=== PATIENT | female | born 1980 | race Caucasian/White ===

== ENCOUNTER 2016-11-23 04:33 | Emergency (ER) | payer SELFPAY ==
[~2016-11-23] VITALS: Ht 170.2 cm; Wt 90.0 kg
[~2016-11-23 04:33] MED LIST: COLY4000S PO; METH40TA9 PO
[2016-11-23 04:35] VITALS: BP 130/74; PULSE 92; RESP 16; TEMP 97.8; O2SAT 98
[2016-11-23 05:04] VITALS: BP 112/71; PULSE 77; RESP 17; O2SAT 97
[2016-11-23 05:12] LABS: AUTOMATED NEUTROPHIL # 5.4 TH/MM3 (1.8-7.7); BASOPHIL # 0.1 TH/MM3 (0-0.2); BASOPHIL % 0.6 % (0.0-2.0); EOSINOPHIL # 0.1 TH/MM3 (0-0.4); EOSINOPHIL % 1.7 % (0.0-4.0); HEMATOCRIT 38.5 % (35.0-46.0); HEMO FLAGS DIFF FINAL; LYMPH % 23.6 % (9.0-44.0); LYMPHOCYTE # 1.9 TH/MM3 (1.0-4.8); MEAN CELL VOLUME 83.3 FL (80.0-100.0); MEAN CORPUSCULAR HEMOGLOBIN 28.1 PG (27.0-34.0); MEAN CORPUSCULAR HGB CONC 33.7 % (32.0-36.0); MONO % 8.1 % (0.0-8.0); PLATELET COUNT 269 TH/MM3 (150-450); RED BLOOD COUNT 4.63 MIL/MM3 (4.00-5.30); RED CELL DISTRIBUTION WIDTH 14.7 % (11.6-17.2); WHITE BLOOD COUNT 8.1 TH/MM3 (4.0-11.0)
[2016-11-23] MEDS ORDERED: SODIUM CHLOR 0.9% 1000 ML INJ 1,000 ML IV ONE ×2 (05:15→06:15)
[2016-11-23 05:50] LABS: ALT (GPT) 52 U/L (10-53); ANION GAP 8 MEQ/L (5-15); AST (GOT) 25 U/L (15-37); BICARBONATE 24.7 MEQ/L (21.0-32.0); BLOOD UREA NITROGEN 11 MG/DL (7-18); CHLORIDE 107 MEQ/L (98-107); GLOMERULAR FILTRATION RATE 73 ML/MIN (>89); POTASSIUM 3.3 MEQ/L (3.5-5.1); SODIUM (NA) 140 MEQ/L (136-145)
[2016-11-23 05:52] LABS: ALKALINE PHOSPHATASE 66 U/L (45-117); TOTAL BILIRUBIN ADULT 0.9 MG/DL (0.2-1.0)
--- NOTE | 2016-11-23 06:07 | PD ---
HPI Chief Complaint: Alcohol/Drug Intoxication Time Seen by Provider: 04:51 Travel History International Travel<30 days: No Contact w/Intl Traveler<30days: No Traveled to known affect area: No History of Present Illness HPI Patient is a 36 year old female who [place]. She says that she thought she was taking meth today, but she has been very sleepy for the past 14 hours. She says she has pain all over. She denies fever or chills. She has not had any SOB or chest pain. She was recently at [facility] for detox and was released a few days ago and relapsed. [facility] Past Medical History ADHD: Yes Bipolar Disorder: Yes Anxiety: Yes Depression: Yes Diminished Hearing: No Kidney Stones: Yes Psychiatric: Yes (PTSD) ?: Not LMP: 11/22/16 : 4 Para: 1 Miscarriage: 3 : 1 Past Surgical History Genitourinary Surgery: Yes (KIDNEY STONE REMOVAL) Oral Surgery: Yes (WISDOM TEETH EXCISION) Other Surgery: Yes (LITHOTRIPSY @ AGE 15) Social History Alcohol Use: No Tobacco Use: Yes (04/19 PPD) Substance Use: No (HX OPIOD ABUSE) Allergies-Medications (Allergen,Severity, Reaction): Coded Allergies: Sulfa (Verified Allergy, Severe, "rash,throat closes", 11/23/16) Reported Meds & Prescriptions Reported Meds & Active Scripts Active Bactrim DS (Sulfamethoxazole-Trimethoprim) 800-160 Mg Tab 1 Tab PO BID Review of Systems Except as stated in HPI: all other systems reviewed are Neg General / Constitutional: No: Fever, Chills Eyes: No: Blurred Vision HENT: No: Headaches, Lightheadedness Cardiovascular: No: Chest Pain or Discomfort Respiratory: No: Shortness of Breath Gastrointestinal: No: Nausea, Vomiting Musculoskeletal: Positive: Myalgias Skin: No Rash, No Change in Pigmentation, No Lesions Neurologic: No: Weakness, Dizziness Physical Exam Narrative GENERAL: Awake and alert, in no acute distress. SKIN: Focused skin assessment warm/dry. HEAD: Atraumatic. Normocephalic. EYES: Pupils equal and round. No scleral icterus. ENT: Mucous membranes pink and moist. NECK: Trachea midline. No JVD. CARDIOVASCULAR: Regular rate and rhythm. No murmur appreciated. RESPIRATORY: No accessory muscle use. Clear to auscultation. Breath sounds equal bilaterally. GASTROINTESTINAL: Abdomen soft, non-tender, nondistended. MUSCULOSKELETAL: No obvious deformities. No clubbing. No cyanosis. No edema. NEUROLOGICAL: Awake and alert. No obvious cranial nerve deficits. Motor grossly within normal limits. Normal speech. PSYCHIATRIC: Appropriate mood and affect; insight and judgment normal. Data Data Last Documented VS Vital Signs Date Time Temp Pulse Resp B/P Pulse Ox O2 Delivery O2 Flow Rate FiO2 11/23/16 07:30 78 16 127/77 99 11/23/16 06:20 Room Air 11/23/16 04:35 97.8 Orders Complete Blood Count With Diff (11/23/16 05:02) Comprehensive Metabolic Panel (11/23/16 05:02) Urinalysis - C+S If Indicated (11/23/16 05:02) Ed Urine Pregnancytest Poc (11/23/16 05:02) Iv Access Insert/Monitor (11/23/16 05:02) Drug Screen, Random Urine (11/23/16 05:02) Sodium Chlor 0.9% 1000 Ml Inj (Ns 1000 M (11/23/16 05:15) Sodium Chlor 0.9% 1000 Ml Inj (Ns 1000 M (11/23/16 06:15) Urine Culture (11/23/16 06:00) Labs Laboratory Tests Test 11/23/16 11/23/16 05:05 06:00 White Blood Count 8.1 TH/MM3 Red Blood Count 4.63 MIL/MM3 Hemoglobin 13.0 GM/DL Hematocrit 38.5 % Mean Corpuscular Volume 83.3 FL Mean Corpuscular Hemoglobin 28.1 PG Mean Corpuscular Hemoglobin 33.7 % Concent Red Cell Distribution Width 14.7 % Platelet Count 269 TH/MM3 Mean Platelet Volume 8.6 FL Neutrophils (%) (Auto) 66.0 % Lymphocytes (%) (Auto) 23.6 % Monocytes (%) (Auto) 8.1 % Eosinophils (%) (Auto) 1.7 % Basophils (%) (Auto) 0.6 % Neutrophils # (Auto) 5.4 TH/MM3 Lymphocytes # (Auto) 1.9 TH/MM3 Monocytes # (Auto) 0.7 TH/MM3 Eosinophils # (Auto) 0.1 TH/MM3 Basophils # (Auto) 0.1 TH/MM3 CBC Comment DIFF FINAL Differential Comment Sodium Level 140 MEQ/L Potassium Level 3.3 MEQ/L Chloride Level 107 MEQ/L Carbon Dioxide Level 24.7 MEQ/L Anion Gap 8 MEQ/L Blood Urea Nitrogen 11 MG/DL Creatinine 0.87 MG/DL Estimat Glomerular Filtration 73 ML/MIN Rate Random Glucose 89 MG/DL Calcium Level 9.1 MG/DL Total Bilirubin 0.9 MG/DL Aspartate Amino Transf 25 U/L (AST/SGOT) Alanine Aminotransferase 52 U/L (ALT/SGPT) Alkaline Phosphatase 66 U/L Total Protein 8.5 GM/DL Albumin 3.9 GM/DL Urine Color YELLOW Urine Turbidity HAZY Urine pH 5.5 Urine Specific [place] 1.033 Urine Protein 30 mg/dL Urine Glucose (UA) NEG mg/dL Urine Ketones NEG mg/dL Urine Occult Blood LARGE Urine Nitrite NEG Urine Bilirubin NEG Urine Urobilinogen 4.0 MG/DL Urine Leukocyte Esterase SMALL Urine RBC 31 /hpf Urine WBC 15 /hpf Urine Squamous Epithelial 7 /hpf Cells Urine Calcium Oxalate Crystals MANY /hpf Urine Bacteria MANY /hpf Urine Mucus FEW /lpf Microscopic Urinalysis Comment CULTURE INDICATED Urine Opiates Screen NEG Urine Barbiturates Screen NEG Urine Amphetamines Screen POS Urine Benzodiazepines Screen NEG Urine Cocaine Screen NEG Urine Cannabinoids Screen NEG MDM Medical Decision Making Medical Screen Exam Complete: Yes Emergency Medical Condition: Yes Medical Record Reviewed: Yes Differential Diagnosis drug abuse vs dehydration vs electrolyte abnormalities Narrative Course Patient is a 36 year old female who comes in because she has been feeling very tired despite using meth earlier today. Her mother has brought her in because she wants her to go to detox. Exam shows no acute abnormalities. IV established , labs sent. Given IVF. Labs show no acute abnormalities, other than UTI on UA. Urine toxicology positive for amphetamines. Patient will go to [facility] for detox. Advised to follow up with a PCP. Advised to return to the ED as needed for any worsening symptoms. Diagnosis Primary Impression: Drug intoxication Qualified Code: F19.920 - Drug intoxication without complication Additional Impression: UTI (urinary tract infection) Qualified Code: N30.00 - Acute cystitis without hematuria Patient Instructions: General Instructions, Polysubstance Abuse (ED) Additional Instructions: Go to [facility] for detox. Follow up with your doctors. Return to the ED as needed for any worsening symptoms. Scripts Sulfamethoxazole-Trimethoprim (Bactrim DS)800-160 Mg Tab1 Tab PO BID #6 TAB Ref 0 Prov:Sally Mcghee MD 11/23/16 Disposition: 01 DISCHARGE HOME Condition: Stable Sally Mcghee MD Nov 23, 2016 06:07
[2016-11-23 06:20] VITALS: RESP 16; O2SAT 98
[2016-11-23 06:58] LABS: BACTERIA, URINE MANY /hpf; BLOOD, URINE LARGE (NEG); CALCIUM OXALATE CRYSTALS,URINE MANY /hpf; COMMENT (UR) CULTURE INDICATED; CULTURE IF INDICATED CULTURE INDICATED; GLUCOSE,URINE NEG (NEG); KETONE, URINE NEG (NEG); MUCUS URINE FEW /lpf (OCC); NITRITE,URINE NEG (NEG); PH, URINE 5.5 (5.0-8.5); SQUAMOUS EPITHELIAL CELL URINE 7 /hpf (0-5); URINE COLOR YELLOW (YELLW/STRAW)
[2016-11-23] MEDS ORDERED: BACT800T5 PO (07:03)
[2016-11-23 07:30] VITALS: BP 127/77
== END 2016-11-23 07:47 | disposition home or self-care (01) ==
LOC: NEPC 04:33
DX: F15.920 Other stimulant use, unspecified with intoxication, uncomplicated (principal); N30.00 Acute cystitis without hematuria; B96.89 Other specified bacterial agents as the cause of diseases classified elsewhere; F17.200 Nicotine dependence, unspecified, uncomplicated
CPT/HCPCS: 80053; 80307; 81001; 84703; 85025; 87086; 99283; J7030